=== PATIENT | female | born 2000 | race Caucasian/White ===

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

== ENCOUNTER 2020-01-14 14:37 | Emergency (ER) | payer OTHER ==
[~2020-01-14] VITALS: Ht 157.5 cm; Wt 88.0 kg
[2020-01-14 14:56] VITALS: Ht 157.5 cm; Wt 88.0 kg
[2020-01-14 15:24] LABS: BASOPHIL % 0.1 % (0-2); PLATELET COUNT 217 x10^3mcL (130-400); RED CELL DISTRIBUTION WIDTH 13.3 % (11.5-14.5)
[2020-01-14 15:51] LABS: CALCIUM 8.2 mg/dL (8.5-10.1); CARBON DIOXIDE 21.1 mmol/L (21-32); CHLORIDE SERUM 103 mmol/L (98-107); CREATININE SERUM 0.5 mg/dL (0.6-1.0); GFR1 > 60 mL/min; GLUCOSE SERUM 105 mg/dL (74-106); POTASSIUM SERUM 3.6 mmol/L (3.5-5.1); SODIUM SERUM 137 mmol/L (136-145)
[2020-01-14 15:56] LABS: ALKALINE PHOSPHATASE 133 U/L (46-116); ALT/SGPT 43 U/L (14-59); AST/SGOT 45 U/L (15-37); LIPASE 108 IU/L (73-393); TOTAL PROTEIN, SERUM 7.2 g/dL (6.4-8.2)
[2020-01-14 16:02] LABS: ALBUMIN 2.7 g/dL (3.4-5.0)
[2020-01-14 17:10] VITALS: BP 107/55
== END 2020-01-14 17:10 | disposition home or self-care (01) ==
LOC: ED 14:37
PROVIDERS: Emergency Medicine
DX: O23.03 Infections of kidney in pregnancy, third trimester (principal); O99.513 Diseases of the respiratory system complicating pregnancy, third trimester; Z90.89 Acquired absence of other organs; Z3A.32 32 weeks gestation of pregnancy
CPT/HCPCS: 87804; J0696; J7030; J7060